=== PATIENT | female | born 1950 | race Two or more races ===

== ENCOUNTER 2024-12-08 09:38 | Emergency (ER) | payer OTHER ==
[~2024-12-08] VITALS: Ht 147.3 cm; Wt 60.1 kg
[2024-12-08 09:40] VITALS: PULSE 100; RESP 20; O2SAT 95
[2024-12-08] MEDS ORDERED: METH4PAK PO (10:57)
[2024-12-08] MEDS ORDERED: ACET500T58 PO (10:57)
--- NOTE | 2024-12-08 10:58 | ED.PDOC ---
Back pain HPI HPI Comments 74-year-old female with a history of hyperlipidemia presents with a chief complaint of atraumatic right lower back pain x1 week. Pain is located at the right paralumbar region and radiates down the posterior right lower extremity with ambulation. Has had same symptoms approximately 10 years ago. Not taking medications for the symptoms listed above. Symptoms are aggravated with ambulation. Improves at rest. Denies history of chronic steroid use or history of osteoporosis Denies any history of cancer Denies fevers chills night sweats nausea vomiting unintentional weight loss Denies IV drug use history of HIV/TB Denies abdominal "tearing" pain Denies syncope Denies urinary incontinence or urinary changes Denies numbness tingling of the groin or inner thigh Denies previous back procedure or surgery Chief Complaint: Back Pain Time Seen by MD: 09:55 Primary Care Provider: IVAN Montilla Notes: Nurses Notes, Medications, Allergies Allergies: Coded Allergies: Penicillins (Verified Allergy, Unknown, 12/08/24) Home Meds Active Scripts Acetaminophen (Acetaminophen) 500 Mg Tab, 500 MG PO Q8HP PRN for 7 Days, #21 TAB 0 Refills Prov:CUONG ALCANTAR [employer]IV[employer]UDIES PROFESSOR 12/08/24 Methylprednisolone (Medrol Dosepak) 4 Mg Oh, 4 MG PO UD for 7 Days, #21 TAB 0 Refills UAD Prov:CUONG ALCANTAR [employer]CHIV[employer] STUDIES PROFESSOR 12/08/24 Information Source: Patient Mode of Arrival: Ambulatory Social History Smoker: Non-Smoker Alcohol: Denies ETOH Use Drugs: Denies Drug Use All Other Systems: Reviewed and Negative (Per HPI) Physical Exam General Appearance: No Apparent Distress, Normal HEENT: Normal ENT Inspection, Pharynx Normal, TMs Normal Neck: Full Range of Motion, Non-Tender, Normal, Normal Inspection Respiratory: Chest Non-Tender, Lungs Clear, No Accessory Muscle Use, No Respiratory Distress, Normal Breath Sounds Cardiovascular: No Edema, No JVD, No Murmur, No Gallop, Normal Peripheral Pulses, Regular Rate/Rhythm Breast Exam: Deferred Gastrointestinal: No Organomegaly, Non Tender, No Pulsatile Mass, Normal Bowel Sounds, Soft Genitalia: Deferred Pelvic: Deferred Rectal: Deferred Extremities: No calf tenderness, Normal capillary refill, Normal inspection, Normal range of motion, Non-tender, No pedal edema Musculoskeletal : Location: Right Extremity Location: Leg (Straight leg raise test +) Apperance: Normal Neurologic: Alert, No Motor Deficits, Normal Affect, Normal Mood, No Sensory Deficits Cerebellar Function: Normal Reflexes: Normal Skin: Dry, Normal Color, Warm Lymphatic: No Adenopathy Was a procedure done? Was a procedure done?: No Back Pain Differential Dx Differential Diagnosis: Musculoskeletal Pain X-Ray, Labs, Meds, VS Vital Signs Date Time Temp Pulse Resp B/P (MAP) Pulse Ox O2 Delivery O2 Flow Rate FiO2 12/08/24 11:45 130/81 (97) 12/08/24 09:40 97.8 100 20 179/102 (127) 95 Current Medications Medications (Trade) Dose Ordered Sig/Huyen Route Start Time Stop Time Status Last Admin Methylprednisolone Sodium Succinate (Solu Medrol) 125 mg ONCE ONCE IM 12/08/24 11:00 12/08/24 11:50 DC 12/08/24 10:59 X-Ray, Labs, Meds, VS Comment Given patient's history and exam: Sciatica, cord compression, cauda equina, aortic dissection, Guillain-[place] syndrome, epidural hematoma/abscess were all considered. Patient not toxic or ill-appearing. Vital signs within acceptable limits. Positive straight leg raise on exam with tenderness to the right buttock consistent with sciatica. No vertebral point tenderness noted over the T or L-spine. No paraspinal muscle tenderness noted. No fever or IV drug use the. Patient given medicine for pain which gave some relief. The patient does not warrant a radiological exam at this time. On reassessment, the patient's symptoms improved, and patient was able to ambulate without assistive devices. The patient will f/u with PMD to see if his/her symptoms john. An MRI may need to be ordered if the symptoms worsen or do not improve over time. The patient was counseled in regard to the diagnosis and management of the condition and verbalized understanding of this. The patient understands to return to the ER or seek immediate medical attention if the symptoms worsen or return. Time of 1ST Reevaluation: 10:50 Reevaluation 1ST: Improved Patient Education/Counseling: Diagnosis, Treatment Family Education/Counseling: Diagnosis, Treatment Departure 1 Departure Time of Disposition: 10:57 Impression: Primary Impression: Lumbar radiculopathy Disposition: 01 HOME / SELF CARE / HOMELESS Condition: Stable e-Prescriptions Acetaminophen (Acetaminophen) 500 Mg Tab 500 MG PO Q8HP PRN for 7 Days, #21 TAB 0 Refills Prov: CUONG ALCANTAR [employer] PROFESSOR 12/08/24 Methylprednisolone (Medrol Dosepak) 4 Mg Oh 4 MG PO UD for 7 Days, #21 TAB 0 Refills UAD Prov: CUONG ALCANTAR NP 12/08/24 Critical Care Note Critical Care Time?: No Stability Stability form required: No Heart Score Heart Score: Heart Score Response (Comments) Value History N/A 0 EKG N/A 0 Age N/A 0 Risk Factors N/A 0 Troponin N/A 0 Total 0 CUONG ALCANTAR NP Dec 08, 2024 10:58
[2024-12-08] MEDS: methylPREDNISolone SOD SUCC 125 MG/2 ML VL IM ONE (10:59)
[2024-12-08 11:45] VITALS: BP 130/81
== END 2024-12-08 11:50 | disposition home or self-care (01) ==
LOC: ER 09:38
DX: M54.16 Radiculopathy, lumbar region (principal); E78.5 Hyperlipidemia, unspecified; Z88.0 Allergy status to penicillin; Z79.899 Other long term (current) drug therapy
CPT/HCPCS: 96372; 99283; J2919